=== PATIENT | male | born 1950 | race Caucasian/White ===

== ENCOUNTER 2020-06-17 15:49 | Emergency (ER) | payer OTHER ==
[~2020-06-17] VITALS: Ht 188 cm; Wt 121.8 kg
[2020-06-17 16:05] VITALS: TEMP 98.3
[2020-06-17] MEDS ORDERED: LANTUS100 U/ML SQ (16:35)
[2020-06-17] MEDS ORDERED: TRULICITY1.5 MG/0.5 SQ (16:36)
[2020-06-17] MEDS ORDERED: ACTOS 15MG TAB15 MG PO (16:41)
[2020-06-17] MEDS ORDERED: SINEMET 10/101 UDTAB PO (16:43)
[2020-06-17] MEDS ORDERED: ASPIRIN 81M81 MG/TA2 PO (16:44)
[2020-06-17] MEDS ORDERED: NEURONTIN400 MG/CAP PO (16:45)
[2020-06-17] MEDS ORDERED: ZOCOR5 MG PO (16:47)
[2020-06-17] MEDS ORDERED: CLARITIN 1010 MG/TAB PO (16:48)
[2020-06-17] MEDS ORDERED: EFFE25TA PO (16:49)
[2020-06-17] MEDS ORDERED: PRINIVIL10 MG PO (16:49)
[2020-06-17] MEDS ORDERED: GLUCOTROL 5M5 MG/TAB PO (16:51)
[2020-06-17 17:21] LABS: COLLECTION METHOD CLEAN CATCH
[2020-06-17 17:32] LABS: BASO % 0.3 % (0.0-2.0); EOS # 0.2 (0.0-0.7); EOS % 2.6 % (0-4.0); GRAN # 4.2 (1.4-6.5); GRAN % 67.7 % (42.2-75.2); HEMATOCRIT 42.4 % (42.0-52.0); HEMOGLOBIN 14.4 g/dl (13.5-18.0); LYMPH # 1.5 (1.2-3.4); LYMPH % 23.9 % (20.0-51.0); MEAN CELL VOLUME 88 fl (80.0-100.0); MEAN CORPUSCULAR HEMOGLOBIN 30 pg (27.0-31.0); MEAN CORPUSCULAR HGB CONC 34 g/dl (33.0-37.0); MEAN PLATELET VOLUME 10.6 fl (7.4-10.4); MONO # 0.3 (0.1-0.6); MONO % 5.3 % (1.7-9.3); PLATELET COUNT 104 K/mm3 (130-400); RED BLOOD COUNT 4.81 M/mm3 (4.20-5.60); REDCELL DISTRIBUTION WIDTH-CV 14.5 % (11.5-14.5)
[2020-06-17 17:35] LABS: ALANINE AMINOTRANSFERASE 7 U/L (4-49); ALBUMIN 4.3 gm/dL (3.5-5.0); ALKALINE PHOSPHATASE 93 U/L (50-136); ANION GAP 6 mmol/L (7-16); AST,SGOT 38 U/L (15-37); BILIRUBIN,TOTAL 0.9 mg/dL (0.0-1.0); BLOOD UREA NITROGEN 20 mg/dL (9-20); C-REACTIVE PROTEIN 0.6 mg/dL (0.0-0.9); CALCIUM 9.7 mg/dL (8.4-10.2); CARBON DIOXIDE 29 mmol/L (22-30); CHLORIDE 97 mmol/L (98-107); CREATININE, serum 0.67 (0.66-1.25); GLUCOSE 196 mg/dL (74-106); LIPASE 172 U/L (23-300); POTASSIUM 4.1 mmol/L (3.4-5.0); SODIUM 132 mmol/L (137-145); TOTAL PROTEIN 7.1 gm/dL (6.4-8.2)
[2020-06-17 17:38] LABS: ACETONE,SERUM NEGATIVE
[2020-06-17 17:40] LABS: URINE APPEARANCE Clear; URINE COLOR Yellow
[2020-06-17 17:41] LABS: PH 6 (5-8); SQUAMOUS EPITHELIAL 0-2 /hpf; URINE BACTERIA None Seen /hpf; URINE BILIRUBIN Negative (NEGATIVE); URINE BLOOD Negative (NEGATIVE); URINE GLUCOSE 3+ (NEGATIVE); URINE KETONE Trace (NEGATIVE); URINE LEUKOCYTE ESTERASE Negative (NEGATIVE); URINE NITRATE Negative (NEGATIVE); URINE PROTEIN(semi-quant) Negative (NEGATIVE); URINE RBC 0-2 /hpf; URINE UROBILINOGEN Negative (NEGATIVE)
[2020-06-17 17:59] LABS: ERYTHROCYTE SEDIMENTATION RATE 7 mm/hr (0-30)
[2020-06-17] MEDS ORDERED: FLOXIN 10 ML10 ML OT (19:06)
[2020-06-17] MEDS ORDERED: DOXYCYCLINE 10100 MG PO (19:06)
[2020-06-17 19:17] VITALS: BP 146/89; PULSE 70
== END 2020-06-17 19:25 | disposition home or self-care (01) ==
LOC: COL.ER 15:49
PROVIDERS: Physician Assistant
DX: K46.9 Unspecified abdominal hernia without obstruction or gangrene (principal); H72.91 Unspecified perforation of tympanic membrane, right ear; L08.9 Local infection of the skin and subcutaneous tissue, unspecified; E11.9 Type 2 diabetes mellitus without complications; I10 Essential (primary) hypertension; E78.5 Hyperlipidemia, unspecified; G20 Parkinson's disease; Z88.0 Allergy status to penicillin; Z79.4 Long term (current) use of insulin; Z79.82 Long term (current) use of aspirin; F17.210 Nicotine dependence, cigarettes, uncomplicated
CPT/HCPCS: Q9967

== ENCOUNTER 2020-08-07 10:06 | Emergency (ER) | payer OTHER ==
[~2020-08-07] VITALS: Ht 188 cm; Wt 125.0 kg
[~2020-08-07 10:06] MED LIST: ACTOS 15MG TAB15 MG PO; ASPIRIN 81M81 MG/TA2 PO; CLARITIN 1010 MG/TAB PO; DOXYCYCLINE 10100 MG PO; EFFE25TA PO; FLOXIN 10 ML10 ML OT; GLUCOTROL 5M5 MG/TAB PO; LANTUS100 U/ML SQ; NEURONTIN400 MG/CAP PO; PRINIVIL10 MG PO; SINEMET 10/101 UDTAB PO; TRULICITY1.5 MG/0.5 SQ; ZOCOR5 MG PO
[2020-08-07 11:04] LABS: BASO % 0.2 % (0.0-2.0); EOS # 0.1 (0.0-0.7); EOS % 1.6 % (0-4.0); GRAN # 3.6 (1.4-6.5); GRAN % 72.9 % (42.2-75.2); HEMATOCRIT 41.8 % (42.0-52.0); HEMOGLOBIN 13.8 g/dl (13.5-18.0); LYMPH # 0.8 (1.2-3.4); LYMPH % 15.9 % (20.0-51.0); MEAN CELL VOLUME 90 fl (80.0-100.0); MEAN CORPUSCULAR HEMOGLOBIN 30 pg (27.0-31.0); MEAN CORPUSCULAR HGB CONC 33 g/dl (33.0-37.0); MEAN PLATELET VOLUME 11.1 fl (7.4-10.4); MONO # 0.5 (0.1-0.6); MONO % 9.2 % (1.7-9.3); PLATELET COUNT 89 K/mm3 (130-400); RED BLOOD COUNT 4.66 M/mm3 (4.20-5.60); REDCELL DISTRIBUTION WIDTH-CV 14.3 % (11.5-14.5)
[2020-08-07 11:13] LABS: INR 1.2 (0.8-3.0); PROTHROMBIN TIME 13.2 SECONDS (9.7-12.8)
[2020-08-07 11:16] LABS: ALANINE AMINOTRANSFERASE 13 U/L (4-49); ALBUMIN 4.1 gm/dL (3.5-5.0); ALKALINE PHOSPHATASE 82 U/L (50-136); ANION GAP 7 mmol/L (7-16); AST,SGOT 42 U/L (15-37); BLOOD UREA NITROGEN 21 mg/dL (9-20); C-REACTIVE PROTEIN 0.6 mg/dL (0.0-0.9); CALCIUM 9.2 mg/dL (8.4-10.2); CARBON DIOXIDE 26 mmol/L (22-30); CHLORIDE 99 mmol/L (98-107); CREATININE, serum 0.68 (0.66-1.25); GLUCOSE 190 mg/dL (74-106); LIPASE 114 U/L (23-300); POTASSIUM 4.3 mmol/L (3.4-5.0); SODIUM 132 mmol/L (137-145); TOTAL PROTEIN 7.2 gm/dL (6.4-8.2)
[2020-08-07 11:27] LABS: TROPONIN-I < 0.012 ng/mL (0.000-0.035)
[2020-08-07 12:30] VITALS: BP 123/76; PULSE 56; TEMP 98
== END 2020-08-07 12:39 | disposition home or self-care (01) ==
LOC: COL.ER 10:06
PROVIDERS: Nurse Practitioner Primary Care
DX: J06.9 Acute upper respiratory infection, unspecified (principal); I10 Essential (primary) hypertension; E11.40 Type 2 diabetes mellitus with diabetic neuropathy, unspecified; F32.9 Major depressive disorder, single episode, unspecified; F43.10 Post-traumatic stress disorder, unspecified; F17.210 Nicotine dependence, cigarettes, uncomplicated; Z20.822 Contact with and (suspected) exposure to COVID-19; Z90.89 Acquired absence of other organs; Z88.0 Allergy status to penicillin; Z88.4 Allergy status to anesthetic agent; Z79.4 Long term (current) use of insulin; Z79.82 Long term (current) use of aspirin
CPT/HCPCS: J7030

== ENCOUNTER 2023-04-29 21:22 | Emergency (ER) | payer OTHER ==
[~2023-04-29] VITALS: Ht 188 cm; Wt 91.8 kg
[~2023-04-29 21:22] MED LIST changes: +COLACE 100100 MG/CAP PO; +DESENEX TP; +EFFEXOR XR37.5 MG/CA PO; +FLAGYL500 MG PO; +FLEET MINE1 BOT/133 RC; +FLOMAX 0.40.4 MG/CAP PO; +GLUCOTROL10 MG PO; +JARDIANCE25 PO; +LEADER CLE17 GM/Dose PO; +LEVAQUIN 750MG750 M1 PO; +LEVEMIR100 U/ML SQ; +LIPITOR 40MG TA40 MG PO; +MIRALAX119G PO; +NEURONTIN300 MG/CAP PO; +NEURONTIN600 MG/TAB PO; +NORCO 325 MG-51 TAB PO; +NOVOLOG 100U100 U/M1 SQ; +PRINIVIL5 MG PO; +PROSCAR 5MG5 MG PO; +SINEMET CR1 UDTAB.S1 PO; +TRULICITY4.5 MG/0.5 SQ; +TUCKS50% TP; +TYLENOL 325MG325 MG PO; +UROXATRAL10 M1 PO; +VIAGRA50 M1; +VITAMIN D31000 I1 PO; +ZOLOFT 100MG100 MG PO
[2023-04-29 21:23] VITALS: TEMP 97.8
[2023-04-30 01:03] VITALS: BP 112/70; PULSE 76
== END 2023-04-30 01:04 | disposition home or self-care (01) ==
LOC: COL.ER 21:22
DX: M25.561 Pain in right knee (principal); M25.551 Pain in right hip; Z87.891 Personal history of nicotine dependence; W18.30XA Fall on same level, unspecified, initial encounter

== ENCOUNTER 2023-04-30 14:55 | Inpatient (IN) | payer OTHER, MEDICARE ==
[~2023-04-30] VITALS: Ht 188 cm; Wt 94.8 kg
[2023-04-30] VITALS (209 sets, daily range): BP systolic 107; BP diastolic 58; PULSE 72; TEMP 98.1; O2SAT 90–100
[2023-04-30 16:29] LABS: BASO % 0.4 % (0.0-2.0); EOS % 0.4 % (0.0-4.0); GRAN % 60.8 % (42.2-75.2); HEMATOCRIT 40.7 % (42.0-52.0); HEMOGLOBIN 14.5 g/dl (13.5-18.0); LYMPH # 1.5 K/mm3 (1.2-3.4); LYMPH % 30.3 % (20.0-51.0); MEAN CELL VOLUME 78 fl (80.0-100.0); MEAN CORPUSCULAR HEMOGLOBIN 28 pg (27-31); MEAN CORPUSCULAR HGB CONC 36 g/dl (33.0-37.0); MEAN PLATELET VOLUME 9.6 fl (7.4-10.4); MONO # 0.4 K/mm3 (0.1-0.6); MONO % 7.9 % (1.7-9.3); PLATELET COUNT 122 K/mm3 (130-400); RED BLOOD COUNT 5.21 M/mm3 (4.20-5.60); REDCELL DISTRIBUTION WIDTH-CV 14.5 % (11.5-14.5)
[2023-04-30 16:50] LABS: ALBUMIN 3.4 gm/dL (3.4-4.8); BILIRUBIN,TOTAL 0.6 mg/dL (0.2-1.2); C-REACTIVE PROTEIN 0.59 mg/dL (0.00-0.50); CALCIUM 9.5 mg/dL (8.4-10.2); CREATININE, serum 1.26 mg/dL (0.72-1.25); POTASSIUM 4.9 mmol/L (3.5-4.5); TOTAL PROTEIN 6.5 gm/dL (6.2-8.1)
--- NOTE | 2023-04-30 19:56 | NUR ---
PATIENT ARRIVED TO ICU VIA BED ON ROOM AIR. INSULIN DRIP RUNNING AT TIME OF ARRIVAL. PATIIENT ARRIVED WITH A RED BAG FULL OF MISC ITEMS. PATIENT ARRIVED WITH MEDICATIONS, GLASSES, PHONE, CHARGING CORD, JACKET, AND SHIRT. PATIENT STATED THAT HE HAD PANTS, HAT, GLOVES, AND STATED WALLET WAS IN HIS PANTS. THESE ITEMS DID NOT ARRIVE TO THE ICU. I CONTACTED THE ER CHARGE NURSE, CARLA, WHO CHECKED FOR ITEMS BUT WAS UNABLE TO FIND ANY. ALIVIA, HOSPITALIST, NOTIFIED IN REGARDS TO PATIENT STATUS, LABS, AND MED REC.
[2023-05-01] VITALS (838 sets, daily range): BP systolic 99–123; BP diastolic 63–79; PULSE 62–73; TEMP 97.3–98.1; O2SAT 84–100
[2023-05-01] LABS: CALCIUM 9.2 mg/dL (8.4-10.2); CREATININE, serum 0.86 mg/dL (0.72-1.25); POTASSIUM 3.7 mmol/L (3.5-4.5)
[2023-05-01 01:47] LABS: CALCIUM 8.7 mg/dL (8.4-10.2); CREATININE, serum 0.84 mg/dL (0.72-1.25); POTASSIUM 3.7 mmol/L (3.5-4.5)
[2023-05-01 03:56] LABS: CALCIUM 8.9 mg/dL (8.4-10.2); CREATININE, serum 0.81 mg/dL (0.72-1.25); POTASSIUM 3.2 mmol/L (3.5-4.5)
[2023-05-01 05:47] LABS: BASO % 0.6 % (0.0-2.0); EOS # 0.1 K/mm3 (0.0-0.7); EOS % 1.1 % (0.0-4.0); GRAN % 55.4 % (42.2-75.2); HEMATOCRIT 40.8 % (42.0-52.0); HEMOGLOBIN 14.7 g/dl (13.5-18.0); LYMPH # 2.4 K/mm3 (1.2-3.4); LYMPH % 33.5 % (20.0-51.0); MEAN CELL VOLUME 78 fl (80.0-100.0); MEAN CORPUSCULAR HEMOGLOBIN 28 pg (27-31); MEAN CORPUSCULAR HGB CONC 36 g/dl (33.0-37.0); MEAN PLATELET VOLUME 9.3 fl (7.4-10.4); MONO # 0.7 K/mm3 (0.1-0.6); PLATELET COUNT 148 K/mm3 (130-400); RED BLOOD COUNT 5.26 M/mm3 (4.20-5.60); REDCELL DISTRIBUTION WIDTH-CV 14.7 % (11.5-14.5)
[2023-05-01 06:07] LABS: ALBUMIN 3.2 gm/dL (3.4-4.8); CALCIUM 9.3 mg/dL (8.4-10.2); CREATININE, serum 0.82 mg/dL (0.72-1.25); PHOSPHOROUS 1.8 mg/dL (2.3-4.7); POTASSIUM 3.6 mmol/L (3.5-4.5)
--- NOTE | 2023-05-01 07:00 | NUR ---
Report received from FLACO Nguyen. Reviewed overnight events, labs and gtts infusing. Pt off insulin gtt at this time and receiving sub q insulin. Pt resting in bed with eyes closed, call light within reach. Will continue with POC.
--- NOTE | 2023-05-01 17:40 | NUR ---
REPORT RECEIVED FROM FLACO RAE IN ICU
--- NOTE | 2023-05-01 17:44 | NUR ---
Report called to FLACO Davidson on the third floor. The room is not clean, will transport pt upstairs when room is clean.
--- NOTE | 2023-05-01 18:07 | NUR ---
Pt refused to be repsotioned during shift. Educated about importance of turning because coccyx is reddend. Pt continues to refuse.
--- NOTE | 2023-05-01 19:01 | NUR ---
REPORT GIVEN TO FLACO DEAN
--- NOTE | 2023-05-01 19:27 | NUR ---
Pt transferred up to room 314 via wheelchair at 1900.
--- NOTE | 2023-05-01 21:43 | NUR ---
Patient arrived to the floor at 1923, remains on room air, still with IV infusing well on right forearm, assessed at this time, see shift assessment, medrec done, denies further need, call light and personal items within reach, fall precautions in place, will continue to monitor.
[2023-05-01] MEDS ORDERED: UROXATRAL10 M1 PO ×2 (22:32→22:34)
[2023-05-01] MEDS ORDERED: JARDIANCE25 PO (22:38)
[2023-05-02] MEDS ORDERED: LANTUS100 U/ML SQ (03:05)
[2023-05-02] MEDS ORDERED: TYLENOL 500MG500 MG PO (03:11)
--- NOTE | 2023-05-02 03:28 | NUR ---
Spoken to [facility] the [facility] in [place] and asked him about the updated home medlist. Robin, the PA made aware of the changes for his meds, received an order to change gabapentin which he takes 800mg TID, effexor 112.5mg daily, DC the flomax and proscar and add alfuzosin 10mg daily.
[2023-05-02 03:35] VITALS: BP 117/65; PULSE 80; TEMP 98
--- NOTE | 2023-05-02 06:00 | NUR ---
Repositioned in bed to his right side, drained 1700ml from the external catheter attached to urine bag, denies further needs, will report off to dayshift nurse.
[2023-05-02 07:21] LABS: BASO % 0.2 % (0.0-2.0); EOS % 0.7 % (0.0-4.0); GRAN # 3.2 K/mm3 (1.4-6.5); GRAN % 78.7 % (42.2-75.2); HEMATOCRIT 40.2 % (42.0-52.0); HEMOGLOBIN 14.1 g/dl (13.5-18.0); LYMPH # 0.5 K/mm3 (1.2-3.4); LYMPH % 12.7 % (20.0-51.0); MEAN CELL VOLUME 79 fl (80.0-100.0); MEAN CORPUSCULAR HEMOGLOBIN 28 pg (27-31); MEAN CORPUSCULAR HGB CONC 35 g/dl (33.0-37.0); MEAN PLATELET VOLUME 9.9 fl (7.4-10.4); MONO # 0.3 K/mm3 (0.1-0.6); MONO % 7.5 % (1.7-9.3); PLATELET COUNT 124 K/mm3 (130-400); RED BLOOD COUNT 5.08 M/mm3 (4.20-5.60); REDCELL DISTRIBUTION WIDTH-CV 14.7 % (11.5-14.5)
[2023-05-02 07:43] LABS: ALBUMIN 2.9 gm/dL (3.4-4.8); CALCIUM 8.8 mg/dL (8.4-10.2); CREATININE, serum 0.85 mg/dL (0.72-1.25); MAGNESIUM 1.7 mg/dL (1.6-2.6); PHOSPHOROUS 2.5 mg/dL (2.3-4.7); POTASSIUM 3.8 mmol/L (3.5-4.5)
--- NOTE | 2023-05-02 08:01 | NUR ---
THIS NURSE NOTIFIED OF PTS BLOOD GLUCOSE OF 426 [address] DIVINE CAMP ASSISTANT. DR MADRIGAL CALLED AND NOTIFIED. PROVIDER OKAY WITH 14 UNITS OF NOVOLOG PER PROTOCOL ONLY. NO NEW ORDERS AT THIS TIME. PT IS ALERT AND ORIENTED UPON ENTERING. PT STATES "I GUESS I HAD TOO MUCH ICE CREAM LAST NIGHT". PT DENIES NEEDS AT THIS TIME
--- NOTE | 2023-05-02 08:10 | NUR ---
PT SITTING UP EATING IN BED UPON ENTERING. THIS NURSE REMINDED PT OF BLOOD GLUCOSE THIS MORNING AND STATED THAT PT SHOULD WAIT TO EAT BREAKFAST UNTIL AFTER INSULING IS GIVEN AND BLOOD GLUCOSE RECHECKED. PT STATES "ITS TOO LATE" AND CONTINUES TO EAT. ASSESSMENT DONE, MEDS GIVEN PER ORDER. PT DENIES PAIN OR SHORTNESS OF BREATH AT THIS TIME. PTS SACRUM IS RED AND PT COMPLAINING ABOUT PILLOW ON HIS LEFT SIDE. THIS NURSE EDUCATED PT ON FREQUENT REPOSITIONING TO RELIEVE PRESSURE ON SACRUM. PILLOW REMOVED AND PT SUPINE. IV TO RIGHT FOREARM FLUSHES WELL WITHOUT COMPLICATIONS. UPPER LOBES AND BASES BILATERALLY DIMINISHED. LIBERTY CATHETER SECURED TO RIGHT THIGH AND IS DRAINING DEPENDENTLY WITHOUT ISSUES. PT DENIES NEEDS AT THIS TIME. BED IN LOWEST POSITION, CALL LIGHT IN REACH, BED ALARM ON
[2023-05-02 08:29] VITALS: BP 107/67; PULSE 86; TEMP 97.8
--- NOTE | 2023-05-02 09:12 | NUR ---
Initial visit; Patient thanked Sewing Machine Operator Floorperson for coming by though declined Spiritual Care. Patient had a flat affect until Sewing Machine Operator Floorperson smiled and stated she was glad she got to meet him though sorry the meeting was at the hospital. Then he smiled and said "thank you."
[2023-05-02 11:24] VITALS: BP 111/71; PULSE 99; TEMP 97.4
--- NOTE | 2023-05-02 11:59 | NUR ---
INSULIN GIVEN PER PROTOCCOL AND POTASSIUM REPLACED X1, WILL RECHECK POTASSIUM IN AM. EXTRENAL CATHETER NO LONGER IN PLACE. PT USING URINAL. URINE CONE PLACED DUE TO PT CONSTANT DRIBBLING OF URINE.
--- NOTE | 2023-05-02 14:45 | NUR ---
PT GIVEN SCHEDULED 10 UNITS OF NOVOLOG AND EDUCATED ON THIS, PT VERBALIZED UNDERSTANDING. PT URINE IS YELLOW AND CLOUDY AT THIS TIME. PT STATES THAT HE FEELS TIRED AND THIRSTY. BLOOD GLUCOSE CHECKED AND IS 361. WILL RECHECK WITH ACHS ORDER. BED IN LOWEST POSITION, CALL LIGHT IN REACH, BED ALARM ON
--- NOTE | 2023-05-02 15:44 | NUR ---
PT GIVEN 800MG OF GABAPENTIN SCHEDULED. PT TELLS THIS NURSE "I USUALLY TAKE 3 PILLS". THIS NURSE NOTIFIED PT OF ORDERED DOSE AND PT STATES THAT HE TAKES 900MG THREE TIMES A DAY. PT STATES "IF I DONT GET 900 I CANT FEEL MY FEET". MED REC REFLECTS 900MG THREE TIMES A DAY. DR CESPEDES NOTIFIED AND TELLS THIS NURSE "THATS FINE JUST ORDER WHAT HE GETS AT HOME".
--- NOTE | 2023-05-02 15:59 | NUR ---
[facility] NURSE [facility]ED [facility] TO SPEAK ABOUT [facility]TS GABAPENTIN DOSE. PHARMACIST TOLD THIS NURSE THAT THE PTS MOST RECENT PRESCRIPTION FOR 800MG GABPENTIN THREE TIMES A DAY WAS ON 01/06/2023. THE NURSE VERBALIZED UNDERSTANDING AND WILL UPDATE PT. NO MEDS CHANGED AT THIS TIME
--- NOTE | 2023-05-02 16:27 | NUR ---
Social grace reviewed PT notes which stated to consider options for discharge, possible home health. JAIME met with patient to discuss discharge planning. Patient confirmed he lives in [place] by himself. [place] [facility] and [place]. Patient denied having a DPOA-HC. Patient reports he has a cane, walker and wheelchair. Patient reports he is independent with ADLS. Patient's neighbors transports him to and from appointments. SW asked for the best point of contact and he reported his sister, Zeynep but he could not remember the phone number. SW discussed discharge planning. Patient reported he did not want to go straight home from the hospital as he was worried about falling again. SW presented SNF options from Medicare.gov in the area along with home health options. Patient expressed he wanted to know if he could be considered for the IPR unit at the hospital. JAIME notified JAIME Oneill whom notified Zabrina with the IPR team to review patient's information. Discharge plan: TBD
[2023-05-02 16:44] VITALS: BP 102/65; PULSE 86; TEMP 97.5
--- NOTE | 2023-05-02 18:58 | NUR ---
REPOR GIVEN TO FLACO ORTIZ
[2023-05-02 19:46] VITALS: BP 108/64; PULSE 86; TEMP 98.1
--- NOTE | 2023-05-02 21:26 | NUR ---
Andressa miller around 1947. Alert and oriented, and able to make needs known. Denies having pain and discomfort. Peripheral INT to right forearm. Denies SOB and dyspnea. LS CTA. HRR. Telemetry in place. BSAx4. No edema. Encouraged to reposition in bed every two hours, but does refuse at times. In bed with call light within reach. High fall risk precautions in place. Bed alarm on.
[2023-05-03] VITALS (7 sets, daily range): BP systolic 85–135; BP diastolic 46–72; PULSE 64–90; TEMP 97–98.7
--- NOTE | 2023-05-03 06:01 | NUR ---
Recieved IV ABX per orders during the night. Reports that he self caths at home. Bladder scan performed with 160 mls of urine in bladder. Patient has been incontinent, and has also used urinal during the night. In bed with call light within reach. High fall risk precautions in place. Bed alarm on.
[2023-05-03 07:46] LABS: BASO % 0.3 % (0.0-2.0); EOS % 0.2 % (0.0-4.0); GRAN # 3.8 K/mm3 (1.4-6.5); HEMATOCRIT 40.2 % (42.0-52.0); HEMOGLOBIN 14.1 g/dl (13.5-18.0); LYMPH # 1.4 K/mm3 (1.2-3.4); LYMPH % 24.4 % (20.0-51.0); MEAN CELL VOLUME 79 fl (80.0-100.0); MEAN CORPUSCULAR HEMOGLOBIN 28 pg (27-31); MEAN CORPUSCULAR HGB CONC 35 g/dl (33.0-37.0); MEAN PLATELET VOLUME 10.1 fl (7.4-10.4); MONO # 0.5 K/mm3 (0.1-0.6); MONO % 8.8 % (1.7-9.3); PLATELET COUNT 121 K/mm3 (130-400); RED BLOOD COUNT 5.06 M/mm3 (4.20-5.60)
[2023-05-03 08:05] LABS: ALBUMIN 2.6 gm/dL (3.4-4.8); CALCIUM 8.9 mg/dL (8.4-10.2); CREATININE, serum 0.82 mg/dL (0.72-1.25); MAGNESIUM 1.7 mg/dL (1.6-2.6); PHOSPHOROUS 3.1 mg/dL (2.3-4.7)
[2023-05-03] MEDS ORDERED: UROXATRAL10 M1 PO (13:39)
[2023-05-03] MEDS ORDERED: NEURONTIN800 MG/TAB PO (13:44)
[2023-05-03] MEDS ORDERED: VIAGRA50 M1 PO (14:01)
[2023-05-03] MEDS ORDERED: MELATONIN5 M1 PO (14:06)
[2023-05-03] MEDS ORDERED: PROAIR HFA0.09 MG/AC IH (14:07)
--- NOTE | 2023-05-03 15:05 | NUR ---
SW was informed by IPR Director she spoke with pt and they will be submitting for auth through the [facility]. Discharge Plan: IPR, pending auth
--- NOTE | 2023-05-03 23:27 | NUR ---
Patient assessed around 2049. Alert and oriented, and able to make needs known. Denies having pain and discomfort. Peripheral INT to right forearm. Denies SOB and dyspnea. LS CTA in upper lobes, diminished in lower. HRR. Telemetry in place. BSAx4. External catheter in place, yellow cloudy urine. Voices no questions, needs, or concerns at this time. In bed with call light within reach. High fall risk precautions in place. Bed alarm on.
[2023-05-04] VITALS (11 sets, daily range): BP systolic 106–135; BP diastolic 57–84; PULSE 70–82; TEMP 97.5–98.1
--- NOTE | 2023-05-04 05:54 | NUR ---
Patient complaining of level 9 pain to knees and legs. Given PRN Roxicodone as requested for pain. External catheter came off during the night. Redness to penis. Left off. Voices no further questions, needs, or concerns at this time. In bed with call light within reach. High fall risk precautions in place. Bed alarm on.
[2023-05-04 07:22] LABS: BASO % 0.2 % (0.0-2.0); EOS % 0.2 % (0.0-4.0); GRAN # 3.7 K/mm3 (1.4-6.5); GRAN % 80.6 % (42.2-75.2); HEMATOCRIT 41.7 % (42.0-52.0); HEMOGLOBIN 14.5 g/dl (13.5-18.0); LYMPH # 0.5 K/mm3 (1.2-3.4); LYMPH % 11.5 % (20.0-51.0); MEAN CELL VOLUME 81 fl (80.0-100.0); MEAN CORPUSCULAR HEMOGLOBIN 28 pg (27-31); MEAN CORPUSCULAR HGB CONC 35 g/dl (33.0-37.0); MEAN PLATELET VOLUME 9.3 fl (7.4-10.4); MONO # 0.3 K/mm3 (0.1-0.6); MONO % 6.8 % (1.7-9.3); PLATELET COUNT 125 K/mm3 (130-400); RED BLOOD COUNT 5.18 M/mm3 (4.20-5.60); REDCELL DISTRIBUTION WIDTH-CV 14.9 % (11.5-14.5)
[2023-05-04 07:33] LABS: ALBUMIN 2.8 gm/dL (3.4-4.8); CALCIUM 9.3 mg/dL (8.4-10.2); CREATININE, serum 0.84 mg/dL (0.72-1.25); MAGNESIUM 1.7 mg/dL (1.6-2.6); PHOSPHOROUS 3.2 mg/dL (2.3-4.7); POTASSIUM 4.5 mmol/L (3.5-4.5)
--- NOTE | 2023-05-04 10:37 | NUR ---
Patient sleeping upon entry to room, urinal in hand. Large incontinence episode noted. Patient states he felt drowsy from Roxicodone pill and must have fallen asleep. Redness noted to scrotum area, barrier cream applied after using bath wipe. Mepilex CDI on coccyx. Patient assisted to bathroom to clean up, refusing walker and gait belt. Gait is unsteady, patient noted to use furniture to hold on to. Linens changed. Patient denies pain at this time. Tolerating food and fluids well. Patient in bed with bed alarm on and call light within reach.
--- NOTE | 2023-05-04 14:57 | NUR ---
damper worker was informed by IPR Director Hermila that auth is pending still. Discharge Plan: IPR, pending auth
--- NOTE | 2023-05-04 17:30 | NUR ---
Patient remains stable at this time. Denies pain or discomfort. Blood sugars ranging from 280s-320s this shift. No excessive snacking noted, just meals and drinks on tray. Patient drinking Glucerna 100%. Resting in bed with call light in reach and fall precautions in place.
--- NOTE | 2023-05-04 18:20 | NUR ---
Increased redness noted to bottom, mepilex remains intact. Area blanching. Waffle cushion placed for patient to sit on. Patient had continent BM in toilet. All needs met at this time.
--- NOTE | 2023-05-04 19:30 | NUR ---
Assessment complete. A&Ox4. Denies nausea/shortness of breath/pain. VS stable. INT to right forearm flushes without difficulty. TELE reporting SR. Currently on RA. Mepilex to coccyx CDI. Noted to have small bruising to bilat lower ext. Plan of care discussed for this shift to include meds/pain control/calling for questions/concerns. Verbalizes understanding. Call light in reach. Will monitor.
--- NOTE | 2023-05-04 21:53 | NUR ---
Patient states he is suppose to take carbidopa three times a day. This nurse reviewed patients home medications list and this medication is not listed. Also reviewed claim history and carbidopa does not show up here either. Patient states [facility]. Will pass on to day shift to call VA to get a new med list sent.
[2023-05-04] MEDS ORDERED: DULCOLAX STOOL100 MG PO (22:10)
[2023-05-05] VITALS (14 sets, daily range): BP systolic 103–139; BP diastolic 62–82; PULSE 58–90; TEMP 97.8–98.8
--- NOTE | 2023-05-05 02:00 | NUR ---
Patient called with c/o pain to bilat lower ext. Rating pain 7/10 on pain scale described as intermittent burning. Spoke with ARIELLA South and tylenol ordered. Given at this time. Will monitor.
--- NOTE | 2023-05-05 05:41 | NUR ---
Patient had an uneventful night. Received tylenol x1 for bilat lower ext pain. INT to right forearm flushes well. VS remained stable. Mepilex to coccyx CDI. Tele reported SR. Currently on RA. Denies current needs. Call light in reach. Will monitor.
[2023-05-05 07:33] LABS: BASO % 0.2 % (0.0-2.0); EOS % 0.5 % (0.0-4.0); GRAN # 2.8 K/mm3 (1.4-6.5); GRAN % 68.6 % (42.2-75.2); HEMOGLOBIN 12.9 g/dl (13.5-18.0); LYMPH # 0.9 K/mm3 (1.2-3.4); LYMPH % 20.7 % (20.0-51.0); MEAN CELL VOLUME 79 fl (80.0-100.0); MEAN CORPUSCULAR HEMOGLOBIN 28 pg (27-31); MEAN CORPUSCULAR HGB CONC 35 g/dl (33.0-37.0); MONO # 0.4 K/mm3 (0.1-0.6); MONO % 9.5 % (1.7-9.3); PLATELET COUNT 103 K/mm3 (130-400); RED BLOOD COUNT 4.69 M/mm3 (4.20-5.60); REDCELL DISTRIBUTION WIDTH-CV 14.7 % (11.5-14.5)
[2023-05-05 07:52] LABS: ALBUMIN 2.4 gm/dL (3.4-4.8); CALCIUM 8.7 mg/dL (8.4-10.2); CREATININE, serum 0.74 mg/dL (0.72-1.25); MAGNESIUM 1.7 mg/dL (1.6-2.6); POTASSIUM 3.9 mmol/L (3.5-4.5)
[2023-05-05] MEDS ORDERED: SINEMET 25/101 UDTAB PO (09:18)
--- NOTE | 2023-05-05 11:08 | NUR ---
Patient alert and oriented x4. Shift assessment completed this morning. Patient states he is tired from little sleep last night due to urinary frequency. Orders provided for condom catheter for night time use. Patient ambulating self to bathroom with x1 assistance, still noted to hold on to furniture for stability and refuse walker. PT worked with patient, but patient required increased encouragement to comply. Mepilex in place to coccyx, waffle cushion underneath bottom. Patient requesting sugary snacks, education provided on blood sugar management. All needs met at this time.
--- NOTE | 2023-05-05 14:19 | NUR ---
Patient expressed some concerns he had with his needs not being met today. States he called for assistance with urinal and no one came. Listened to patient's frustrations. Patient wants to wear a brief in bed and take waffle cushion out. Education provided on pressure reducing and skin breakdown. Patient encouraged to call to get up and ambulate to bathroom often, states he will. Wants to get in recliner and play guitar. Fall precautions in place, all needs met at this time.
--- NOTE | 2023-05-05 15:35 | NUR ---
lease out worker was informed VA auth is still pending, but patient might not even be signed up for VA benefits. IPR Director is still working to get this figured out and will update the team tomorrow. DR. Kenan Singh notified. Discharge Plan: IPR tenative, tbd
--- NOTE | 2023-05-05 20:00 | NUR ---
Assessment complete. A&Ox4. Denies nausea/shortness of breath. Rating pain 7/10 to bilat lower [id number]-pdemjef-ysggrpe given per dr order. INT to right forearm flushes without difficulty. Mepilex to coccyx CDI. Currently on RA. TELE reporting SR. On RA. Patient requesting condom cath be placed at HS. Will apply closer to sleep time. Plan of care discussed for this shift to include meds/pain control/calling for questions/concerns. Verbalizes understanding. Call light in reach. Will monitor.
[2023-05-06] VITALS (9 sets, daily range): BP systolic 91–126; BP diastolic 59–71; PULSE 67–76; TEMP 97.7–98.9
--- NOTE | 2023-05-06 06:07 | NUR ---
Patient had an uneventful night. VS remained stable. Condom cath for sleep. INT to right forearm flushes well-no s/s of infiltration noted. On contact precautions for ESBL in urine. Denies current needs. Call light in reach. Will monitor.
--- NOTE | 2023-05-06 08:00 | NUR ---
DR COX NOTIFIED OF PTS BP 91/59. HOSPITALIST TOLD THIS NURSE TO RECHECK IN AN HOUR.
--- NOTE | 2023-05-06 08:20 | NUR ---
PT LAYING IN BED UPON ENTERING. ASSESSMENT DONE, MEDS GIVEN PER ORDER. INT TO RIGHT FOREARM FLUSHES WELL WITHOUT COMPLICATIONS. EXPIRATORY WHEEZES HEARD IN ALL LUNG WHEELER. PT DENIES PAIN OR SHORTNESS OF BREATH AT THIS TIME. PT HAS ABRASION TO LEFT GONZALEZ COVERED WITH AQUACELL. PT DENIES NEEDS AT THIS TIME. BED IN LOWEST POSITION, CALL LIGHT IN REACH, BED ALARM ON.
[2023-05-06 08:25] LABS: BASO % 0.2 % (0.0-2.0); EOS % 0.7 % (0.0-4.0); GRAN # 2.6 K/mm3 (1.4-6.5); HEMATOCRIT 41.3 % (42.0-52.0); HEMOGLOBIN 14.2 g/dl (13.5-18.0); LYMPH # 1.1 K/mm3 (1.2-3.4); LYMPH % 25.1 % (20.0-51.0); MEAN CELL VOLUME 81 fl (80.0-100.0); MEAN CORPUSCULAR HEMOGLOBIN 28 pg (27-31); MEAN CORPUSCULAR HGB CONC 34 g/dl (33.0-37.0); MEAN PLATELET VOLUME 9.8 fl (7.4-10.4); MONO # 0.5 K/mm3 (0.1-0.6); MONO % 12.1 % (1.7-9.3); PLATELET COUNT 109 K/mm3 (130-400); RED BLOOD COUNT 5.11 M/mm3 (4.20-5.60); REDCELL DISTRIBUTION WIDTH-CV 14.9 % (11.5-14.5)
[2023-05-06 08:35] LABS: CALCIUM 9.3 mg/dL (8.4-10.2); CREATININE, serum 0.7 mg/dL (0.72-1.25); POTASSIUM 3.9 mmol/L (3.5-4.5)
--- NOTE | 2023-05-06 13:04 | NUR ---
caseworker intake was informed by Yasmany Zaragoza that pt is refusing services from the therapists. She states someone told him he was discharging home today and he did not agree with this. JAIME spoke with IPR Director Hermila who declines patient for IPR due to refusal of therapies in the recent past. JAIME spoke with Dr. Kenan Singh who informs SW pt is on an IV antibiotic and would benefit from a swing bed if he cannot get into IPR. JAIME and Student Heena met with pt to discuss the discharge plan. SW advised that swing bed had not accepted him due to a refusal of services. Pt verbalized that he only did that because "someone said I was going home and DC didn't cover it." SW stated that they were attempting to get VA approval and and unsure on if it was active. SW stated that pt does have Medicare AB. Pt was surprised by this and said "I do?" SW confirmed with him he does. SW went over the next reccomendation, which was Swing Bed to finish the last 6~ days of IV abox. Pt was informed on the longterm there and how they even provide rehab services in the hospital setting. Pt says, "So I can't stay here? If I can't stay here I am going home." SW continued to provide information on Swing Bed and its benefits to pt. He was informed on the need to continue his IV abox. Pt shook his head and stated multiple times he will just go home. SW asked what he would do about the need for medication and he shrugged his shoulders and said, "we'll see." JAIME exited the room and informed on patient's decision. JAIME spoke with Oncology Social Work Sammi who reports she cannot access the VA system to see if he has 's Choice. She confirmed that pt does have active Medicare. SW informed and IPR Hermila. Discharge Plan: Home
[2023-05-06] MEDS ORDERED: MONUROL 3 GM3 G/PKT PO (14:31)
--- NOTE | 2023-05-06 14:55 | NUR ---
dairy feed worker was notified by Dr. Kenan Singh that she spoke with pt about discharge and he reported not having a car, transportation, or his house keys. SW spoke with patient and he said his neighbor, Ximena [phone] is coming back in 2.5 hours to pick him up. SW informed him to keep the nurse/aide updated on the status so they can assist in getting him ready. SW completed IM from Medicare by verbal order. Pt provided verbal consent. SW provided patient with copy and original in chart. Pt reports he [facility] home care [facility] the [facility] and all his appointments are scheduled in advance. Discharge Plan: Home
--- NOTE | 2023-05-06 15:35 | NUR ---
IV AND TELE REMOVED. PT GIVEN DISCHARGE INSTRUCTIONS AND VERBALIZED UNDERSTANDING. PT GIVEN ONE TIME FOSFOMYCIN. PT DENIES NEEDS AT THIS TIME AND THIS NURSE GAVE PT CLOTHES TO CHANGE INTO, PT DENIES NEEDING HELP FROM STAFF TO CHANGE. PT REPORTS THAT HIS RIDE WILL BE HERE FROM [phone]. PT HAS NO OTHER NEEDS AT THIS TIME
--- NOTE | 2023-05-06 17:20 | NUR ---
PT IS DRESSED IN PERSONAL CLOTHES AND FAMILY AT BEDSIDE. BELONGINGS TAKEN BY SON AND PT ESCORTED TO PERSONAL VEHICLE VIA WHEELCHAIR BY COREY CLAYTON
[2023-05-09] MEDS ORDERED: MONUROL 3 GM3 G/PKT PO (10:20)
== END 2023-05-06 17:21 | disposition home or self-care (01) | DRG 638 ==
LOC: COL.ER 14:55 → ICU 17:14 → MEDICAL 17:14
PROVIDERS: Family Medicine; Physician Assistant; ADMIT Internal Medicine
DX: E11.10 Type 2 diabetes mellitus with ketoacidosis without coma (principal); E87.1 Hypo-osmolality and hyponatremia; N39.0 Urinary tract infection, site not specified; Z16.12 Extended spectrum beta lactamase (ESBL) resistance; I49.3 Ventricular premature depolarization; K59.00 Constipation, unspecified; E11.40 Type 2 diabetes mellitus with diabetic neuropathy, unspecified; R33.9 Retention of urine, unspecified; G20.A1 Parkinson's disease without dyskinesia, without mention of fluctuations; F17.210 Nicotine dependence, cigarettes, uncomplicated; I10 Essential (primary) hypertension; F43.10 Post-traumatic stress disorder, unspecified; H26.9 Unspecified cataract; I49.1 Atrial premature depolarization; I48.91 Unspecified atrial fibrillation; R29.6 Repeated falls; B96.20 Unspecified Escherichia coli [E. coli] as the cause of diseases classified elsewhere; I34.0 Nonrheumatic mitral (valve) insufficiency; Z88.0 Allergy status to penicillin; Z88.7 Allergy status to serum and vaccine; Z91.041 Radiographic dye allergy status; Z90.49 Acquired absence of other specified parts of digestive tract; Z79.82 Long term (current) use of aspirin; Z79.899 Other long term (current) drug therapy; Z79.4 Long term (current) use of insulin; Z88.4 Allergy status to anesthetic agent
CPT/HCPCS: J1650; J1815; J2185; J7030; J7042

== ENCOUNTER 2023-12-01 12:01 | Emergency (ER) | payer OTHER ==
[~2023-12-01] VITALS: Ht 188 cm; Wt 93.2 kg
[~2023-12-01 12:01] MED LIST changes: +BASAGLAR K100 UNIT/1 SQ; +CLEOCIN HC150 MG/CAP PO; +CVS GLUCOSE BIT1 CTB PO; +DULCOLAX STOOL100 MG PO; +INSULIN AS100 UNIT/2 SQ; +INSULIN HUMA100 U/ML SQ; +MELATONIN5 M1 PO; +MONUROL 3 GM3 G/PKT PO; +NEURONTIN800 MG/TAB PO; +PROAIR HFA0.09 MG/AC IH; +REFRESH TEARS 330 ML OP; +SINEMET 25/101 UDTAB PO; +TYLENOL 500MG500 MG PO; +VIAGRA50 M1 PO; -VITAMIN D31000 I1 PO; +VITAMIN D31000 IU PO
[2023-12-01 12:09] VITALS: TEMP 98.9
[2023-12-01] MEDS ORDERED: Acetaminophen 325 MG TAB PO ONE (12:45)
[2023-12-01 16:30] VITALS: BP 101/70; PULSE 96
[2023-12-03] MEDS ORDERED: INSULIN LI100 UNIT/2 (06:31)
[2023-12-03] MEDS ORDERED: INSULIN GL100 UNIT/2 SQ (06:31)
[2023-12-03] MEDS ORDERED: NEURONTIN300 MG/CAP PO (06:32)
[2023-12-03] MEDS ORDERED: GLUCOTROL 5M5 MG/TAB PO (06:32)
[2023-12-03] MEDS ORDERED: ZOCOR5 MG (06:35)
[2023-12-05] MEDS ORDERED: ZOSTRIX-HP0.075% TP (09:42)
[2023-12-05] MEDS ORDERED: GLUCOTROL10 MG PO (09:48)
[2023-12-05] MEDS ORDERED: INSULIN AS100 UNIT/3 SQ (09:51)
[2023-12-05] MEDS ORDERED: MELATONIN5 M1 SL (09:56)
[2023-12-05] MEDS ORDERED: VIAGRA50 M1 PO (09:58)
[2023-12-08] MEDS ORDERED: DIFLUCAN200 MG PO (09:30)
== END 2023-12-01 16:30 | disposition home or self-care (01) ==
LOC: COL.ER 12:01
DX: S09.90XA Unspecified injury of head, initial encounter (principal); S01.01XA Laceration without foreign body of scalp, initial encounter; W01.118A Fall on same level from slipping, tripping and stumbling with subsequent striking against other sharp object, initial encounter

== ENCOUNTER 2024-01-27 11:21 | Inpatient (IN) | payer OTHER ==
[~2024-01-27] VITALS: Ht 188 cm; Wt 91.3 kg
[~2024-01-27 11:21] MED LIST changes: +CIPRO 500MG TA500 MG PO; +CIPRODEX OT; +DIFLUCAN200 MG PO; +INSULIN AS100 UNIT/3 SQ; +INSULIN GL100 UNIT/2 SQ; +INSULIN LI100 UNIT/2; +LIPITOR20 MG PO; +MELATONIN5 M1 SL; +ZOCOR5 MG; +ZOSTRIX-HP0.075% TP
[2024-01-27] MEDS ORDERED: Ondansetron 4 MG/2 ML VIAL IV ONE (11:45)
[2024-01-27] MEDS ORDERED: NS 1,000 ML IV ONE (11:45)
[2024-01-27] MEDS ORDERED: Morphine 4 MG/ML VIAL IV ONE (11:45)
[2024-01-27 12:04] LABS: BASO % 0.2 % (0.0-2.0); EOS % 0.2 % (0.0-4.0); GRAN # 7.5 K/mm3 (1.4-6.5); GRAN % 80.7 % (42.2-75.2); HEMATOCRIT 40.5 % (42.0-52.0); HEMOGLOBIN 13.7 g/dl (13.5-18.0); LYMPH # 1.1 K/mm3 (1.2-3.4); LYMPH % 12.3 % (20.0-51.0); MEAN CELL VOLUME 81 fl (80.0-100.0); MEAN CORPUSCULAR HEMOGLOBIN 27 pg (27-31); MEAN CORPUSCULAR HGB CONC 34 g/dl (33.0-37.0); MEAN PLATELET VOLUME 10.8 fl (7.4-10.4); MONO # 0.6 K/mm3 (0.1-0.6); MONO % 6.5 % (1.7-9.3); PLATELET COUNT 112 K/mm3 (130-400); RED BLOOD COUNT 5.01 M/mm3 (4.20-5.60); REDCELL DISTRIBUTION WIDTH-CV 15.3 % (11.5-14.5)
[2024-01-27 12:22] LABS: ALBUMIN 3.1 g/dL (3.4-4.8); BILIRUBIN,TOTAL 0.7 mg/dL (0.2-1.2); C-REACTIVE PROTEIN 10.11 mg/dL (0.00-0.50); CALCIUM 9.2 mg/dL (8.4-10.2); CREATININE, serum 0.85 mg/dL (0.72-1.25); POTASSIUM 3.7 mEq/L (3.5-4.5); TOTAL PROTEIN 6.6 g/dl (6.2-8.1)
[2024-01-27 12:24] LABS: COLLECTION METHOD CLEAN CATCH
[2024-01-27 12:30] LABS: PH 5.5 (5.0-8.5); URINE APPEARANCE CLOUDY (CLEAR/HAZY); URINE BLOOD 1+ (NEGATIVE); URINE COLOR YELLOW (YELLOW); URINE GLUCOSE 3+ (NEGATIVE); URINE KETONE NEGATIVE (NEGATIVE); URINE NITRATE NEGATIVE (NEGATIVE); URINE PROTEIN(semi-quant) TRACE (NEGATIVE); URINE UROBILINOGEN 0.2 E.U/dL (0.2-1.0)
[2024-01-27 12:43] LABS: BUDDING YEAST PRESENT (NOT PRESENT); URINE BACTERIA OCCASIONAL /hpf (NONE SEEN); URINE RBC 0-2 /hpf (0-2); URINE WBC >50 /hpf (0-2)
[2024-01-27] MEDS ORDERED: Iohexol 300 - 100 ML VIAL IV ONE (12:48)
[2024-01-27] MEDS ORDERED: NS 50 ML IV SCH (12:49)
[2024-01-27] MEDS ORDERED: cefTRIAXone 1 G in Water For Injection,Sterile 10 ML IV ONE (13:15)
--- NOTE | 2024-01-27 15:32 | NUR ---
Pt arrived to medical floor from ED. Vague report received from ED RN Aiyana. Admission assessment and intake completed. Pt reports to this nurse that he has brought personal home medications in and glasses. Pharmacy notified and home medications sent down to pharmacy. Unable to complete medication rec at this time as pt is unsure of what home medications are at this time. Wounds assessed in assessment and redressed with mepilex on all wounds. Pt denies pain rating 0/10. Pt ambulates independently with personal cane in room with no complications. INT to Rt wrist in place and flushes with no complications. Pt has no request at this time. Oriented pt to room, call light, and bathroom. Call light within reach.
[2024-01-27 15:38] VITALS: BP 109/65; PULSE 84; TEMP 98.2
[2024-01-27] MEDS ORDERED: Ondansetron 4 MG/2 ML VIAL IV PRN (15:45)
[2024-01-27] MEDS ORDERED: Acetaminophen 500 MG TAB PO PRN (15:45)
[2024-01-27] MEDS ORDERED: Meropenem 500 MG in Water For Injection,Sterile 10 ML IV SCH (16:00)
[2024-01-27 16:19] VITALS: BP_SYST 109
[2024-01-27] MEDS ORDERED: GLUCOTROL 5M5 MG/TAB PO (16:29)
[2024-01-27] MEDS ORDERED: Insulin Lispro (HumaLOG) SQ SCH ×2 (17:00)
[2024-01-27] MEDS ORDERED: Dextrose 50% Water 25 GM/50 ML SYRINGE IV PRN (17:00)
[2024-01-27] MEDS ORDERED: Dextrose (Glucose) 15 GM (4 x 3.75 GM) Chewable TABLET PACK PO PRN (17:00)
[2024-01-27] MEDS ORDERED: Glucagon 1 MG VIAL IM PRN (17:00)
--- NOTE | 2024-01-27 17:17 | NUR ---
CROEY Matthews reported blood sugar of 153 to this nurse. 4 units of humalog administered per sliding scale. Blood sugar in computer noted to be 149. Dr. Ramirez notified by phone of insulin administration and stated to this nurse that administration of 4 units of Humalog ok at this time.
[2024-01-27 17:19] VITALS: BP_SYST 109
[2024-01-27 20:21] VITALS: BP 148/82; PULSE 86; TEMP 97.9
[2024-01-27 20:55] VITALS: BP_SYST 148
[2024-01-27] MEDS ORDERED: Atorvastatin 20 MG TAB PO SCH (21:00)
[2024-01-27] MEDS ORDERED: Gabapentin 300 MG CAP PO SCH (21:00)
[2024-01-27 23:30] VITALS: BP 123/86; PULSE 78; TEMP 98.4
[2024-01-28] VITALS (12 sets, daily range): BP systolic 106–132; BP diastolic 65–79; PULSE 69–81; TEMP 97.5–98
[2024-01-28 06:34] LABS: BASO % 0.2 % (0.0-2.0); EOS # 0.1 K/mm3 (0.0-0.7); EOS % 0.9 % (0.0-4.0); GRAN # 3.9 K/mm3 (1.4-6.5); GRAN % 68.2 % (42.2-75.2); HEMATOCRIT 40.4 % (42.0-52.0); HEMOGLOBIN 13.7 g/dl (13.5-18.0); LYMPH # 1.2 K/mm3 (1.2-3.4); LYMPH % 20.6 % (20.0-51.0); MEAN CELL VOLUME 80 fl (80.0-100.0); MEAN CORPUSCULAR HEMOGLOBIN 27 pg (27-31); MEAN CORPUSCULAR HGB CONC 34 g/dl (33.0-37.0); MEAN PLATELET VOLUME 10.4 fl (7.4-10.4); MONO # 0.6 K/mm3 (0.1-0.6); MONO % 9.7 % (1.7-9.3); PLATELET COUNT 111 K/mm3 (130-400); RED BLOOD COUNT 5.06 M/mm3 (4.20-5.60); REDCELL DISTRIBUTION WIDTH-CV 15.1 % (11.5-14.5)
[2024-01-28 06:48] LABS: CALCIUM 9.2 mg/dL (8.4-10.2); CREATININE, serum 0.74 mg/dL (0.72-1.25); POTASSIUM 3.5 mEq/L (3.5-4.5)
--- NOTE | 2024-01-28 07:53 | NUR ---
Bedside report received from FLACO Chaves. Pt resting in bed awake with no complaints. Call light within reach.
[2024-01-28] MEDS ORDERED: Insulin Lispro (HumaLOG) SQ SCH (08:00)
[2024-01-28] MEDS ORDERED: Venlafaxine XR 37.5 MG CAP PO SCH (09:00)
[2024-01-28] MEDS ORDERED: Insulin Glargine-ygfn (Lantus) SQ SCH (09:00)
[2024-01-28] MEDS ORDERED: [UNRECOGNIZED DRUG - OTHER] PO SCH (09:00)
[2024-01-28] MEDS ORDERED: ALFUZOSIN 10 MG PO SCH (09:00)
[2024-01-28] MEDS ORDERED: Sertraline 100 MG TAB PO SCH (09:00)
--- NOTE | 2024-01-28 11:26 | NUR ---
Pt awake in bed eating breakfast. Shift assessment completed. VSS. Pt denies pain rating 0/10. RLE noted to have mild edema with no pitting. Redness to RLE noted. Wound to Rt foot covered with bandaid at this time. Pt requestign shower this afternoon and will redress wound following shower. Mepilex to Rt hand and Rt elbow in place covering open blisters. Pt ambulates independently in room with personal cane with no complications. INT to Rt wrist patent with no swelling, redness or drainage. Pt has no complaints at this time. Call light within reach.
[2024-01-28] MEDS ORDERED: cefTRIAXone 1 G in Water For Injection,Sterile 10 ML IV SCH (13:00)
--- NOTE | 2024-01-28 13:07 | NUR ---
Anvilsmith met with patient to discuss discharge planning. Patient lives in [place] with a roommate, Eyad. Patient goes to the [facility] for primary care and advised they are trying to change him to the home based primary care program. Patient belives he may have Home Health, but could not think of the agency. Patient was admitted to this hospital in November and was discharged to [facility] in [place]. Patient advised his medications are mailed to his home. Patient reported independence wt ADLS and that Eyad helps with shopping and transportation. Patient has a walker, cane, and shower chair available at home. Patient stated he plans to return home at time of discharge. SW collaborated with VIRIDIANA Turcios who advised patient did not want assistance with ambulation and requested PT sign off. Patient has DPOA-HC that designates his sister, Marlee and brother, Adriano. Discharge Plan; Home
--- NOTE | 2024-01-28 18:00 | NUR ---
Mepilex applied to pt Rt hand and Rt elbow open blisters. Pt reported to this nurse that there is a wound on buttock area. This nurse assessed pt skin and found small round open would between buttock and testicle region of body. Pt reported that outpatient wound care had been packing wound routinely for pt. This nurse applied Mepilex and notified Dr. Ramirez of wound. Dr. Ramirez stated Mepilex was fine at this time and no further action needed. This nurse then updated general house worker Annelise about pt wound and general house worker informed this nurse to document wound via photograph per protocol. Attempeted to measure wound and document photograph of wound into [place] but pt eating dinner at this time. This nurse informed pt that nursing staff would be in after dinner is complete to measure and document wound. Pt agreeable and has no complaints. Call light within reach.
[2024-01-29] VITALS (11 sets, daily range): BP systolic 112–151; BP diastolic 72–90; PULSE 64–77; TEMP 97.6–98.3
[2024-01-29 06:24] LABS: BASO % 0.2 % (0.0-2.0); EOS % 0.7 % (0.0-4.0); GRAN # 2.8 K/mm3 (1.4-6.5); GRAN % 65.1 % (42.2-75.2); HEMATOCRIT 37.6 % (42.0-52.0); HEMOGLOBIN 12.6 g/dl (13.5-18.0); LYMPH # 0.9 K/mm3 (1.2-3.4); LYMPH % 19.8 % (20.0-51.0); MEAN CELL VOLUME 80 fl (80.0-100.0); MEAN CORPUSCULAR HEMOGLOBIN 27 pg (27-31); MEAN CORPUSCULAR HGB CONC 34 g/dl (33.0-37.0); MONO # 0.6 K/mm3 (0.1-0.6); MONO % 13.7 % (1.7-9.3); PLATELET COUNT 102 K/mm3 (130-400); REDCELL DISTRIBUTION WIDTH-CV 14.9 % (11.5-14.5)
[2024-01-29 06:37] LABS: CALCIUM 8.9 mg/dL (8.4-10.2); CREATININE, serum 0.74 mg/dL (0.72-1.25); POTASSIUM 4.2 mEq/L (3.5-4.5)
--- NOTE | 2024-01-29 09:30 | NUR ---
PATIENT RESTING IN BED UPON ENTERING ROOM. MORNING MEDICATIONS ADMINISTERED PER eMAR. PATIENT DENIES ANY PAIN AT THIS TIME. DRESSINGS CHANGED. X2 ULCERS TO R FOOT, PLACED NON ADHERENT GAUZE PADS AND WRAPPED WITH GAUZE. R HAND HAS PURULENT DRAINAGE, THIS RN CLEANED THE SITE WITH STERILE GAUZE PADS AND STERILE WATER, AQUACELL PLACED TO SITE. R ELBOW ABRASION HAS A SCAB, AQUACELL PLACED TO AREA. TUNNELING WOUND TO LEFT GROIN/SCROTUM WAS PACKED AND COVERED WITH A GAUZE PAD AND TEGADERM. PATIENT UPDATED ON PLAN OF CARE. DENIES ANY NEEDS AT THIS TIME. WILL CONTINUE TO MONITOR.
[2024-01-29] MEDS ORDERED: Polyethylene Glycol 3350 17 GM PDS PO SCH (09:43)
[2024-01-29] MEDS ORDERED: cefTRIAXone 1 G in Water For Injection,Sterile 10 ML IV SCH (09:45)
[2024-01-29] MEDS ORDERED: Vancomycin 1.5 GM,Special Dose/Pharmacy Prepared 1.5 GM in NS 250 ML IV SCH (10:00)
[2024-01-29] MEDS ORDERED: Vancomycin 1.25 GM,Special Dose/Pharmacy Prepared 1.25 GM in NS 250 ML IV SCH (21:00)
[2024-01-30] VITALS (13 sets, daily range): BP systolic 120–137; BP diastolic 70–80; PULSE 65–81; TEMP 97.6–98.2
[2024-01-30 06:59] LABS: BASO % 0.5 % (0.0-2.0); EOS % 0.7 % (0.0-4.0); GRAN # 2.3 K/mm3 (1.4-6.5); GRAN % 55.7 % (42.2-75.2); HEMOGLOBIN 12.5 g/dl (13.5-18.0); LYMPH # 1.4 K/mm3 (1.2-3.4); LYMPH % 33.4 % (20.0-51.0); MEAN CELL VOLUME 79 fl (80.0-100.0); MEAN CORPUSCULAR HEMOGLOBIN 27 pg (27-31); MEAN CORPUSCULAR HGB CONC 34 g/dl (33.0-37.0); MEAN PLATELET VOLUME 9.5 fl (7.4-10.4); MONO # 0.4 K/mm3 (0.1-0.6); MONO % 9.2 % (1.7-9.3); PLATELET COUNT 107 K/mm3 (130-400); RED BLOOD COUNT 4.62 M/mm3 (4.20-5.60); REDCELL DISTRIBUTION WIDTH-CV 14.9 % (11.5-14.5)
[2024-01-30 07:12] LABS: HEMATOCRIT 36.5 % (42.0-52.0)
[2024-01-30 07:20] LABS: CALCIUM 8.8 mg/dL (8.4-10.2); CREATININE, serum 0.71 mg/dL (0.72-1.25)
--- NOTE | 2024-01-30 09:30 | NUR ---
PATIENT RESTING IN BED UPON ENTERING ROOM. MORNING MEDICATIONS ADMINISTERED PER eMAR. PATIENT UPDATED ON PLAN OF CARE. PATIENT DENIES ANY PAIN OR NEEDS AT THIS TIME. ALL WOUND DRESSINGS C/D/I FROM YESTERDAY. CALL LIGHT PLACED WITHIN REACH. WILL CONTINUE TO MONITOR.
--- NOTE | 2024-01-30 11:43 | NUR ---
PATIENT INFORMED THIS RN THAT HE WOULD NO LONGER LIKE RAJAT, INTERNET DATABASE SPECIALIST, ON HIS CASE. RAJAT CALLED AND INFORMED.
--- NOTE | 2024-01-30 13:48 | NUR ---
Pillowcase Maker was notified by Hospitalist that patient will need about a week of IV antibiotics and that they would recommend a swing bed stay. SW has worked with patient during previous hospitalizations and patient does not have reliable in home support, so this SW does not feel he is a good candidate for home IV antibiotics. Patient also does not have reliable transportation, so outpatient daily IV antibiotics may not be achievable for him. SW met with patient to discuss swing bed and patient stated he would just prefer to stay here for the antibiotics. SW explained this was not a option for him as he was medically cleared for discharge. SW discussed a swing bed stay and that it would require auth from [facility]. Patient immediately frustrated by this and stated he no longer has [employer] and will only go somewhere if the [facility] pays. Patient stated he received a $1000 bill because [employer] did not cover his last SNF stay. SW advised she would follow up on [employer] coverage. JAIME gave referrals to both [facility] and [facility]. JAIME also contacted the Admissions team to verify insurance. JAIME was notified by RN that patient has "fired" this SW and that he no longer wants to work with her. JAIME notified Director.
[2024-01-30] MEDS ORDERED: CUBICIN 500MG500 MG IV (15:45)
[2024-01-30] MEDS ORDERED: DAPTOmycin 500 MG in NS 10 ML IV SCH (16:00)
--- NOTE | 2024-01-30 16:13 | NUR ---
Top Frame Fitter uploaded prescription for IV antibiotics to the [employer] portal for review.
--- NOTE | 2024-01-30 20:30 | NUR ---
UPON SHIFT ASSESSMENT, PATIENT WAS AWAKE IN BED ON PHONE. HE IS A&O X . VS ARE WNL. BLLE DRESSINGS ARE CDI, PERIANAL-CDI AND ABRASION TO RT HAND CDI. PATIENT DENIES PAIN AT THIS TIME. BG 162 4 UNITS INSULIN PROVIDED. CALL LIGHT WITHIN REACH.
--- NOTE | 2024-01-30 22:30 | NUR ---
PATIENT REQUESTING STRAWBERRY ICE CREAM. DIET ORDERS ARE GENERAL, UPON PATIENT INSISTANCE, HOWEVER, PATIENT NON COMPLIANT DIABETIC. PATIENT EDUCATION PROVIDED.
--- NOTE | 2024-01-30 22:30 | NUR ---
PATIENT EXHIBITING ANXIOUS BEHAVIOR, STATES, "I'M AFRAID THE OPERATION IS GOING TO GO BAD. I'VE BEEN 57 YEARS AND I AM NOT READY TO LEAVE MY ." PATIENT EDUCATION PROVIDED ON UPCOMING EGD AND 30 MINUTES OF THERAPEUTIC COMMUNICATION WITH A WALK AROUND THE UNIT PROVIDED. PATIENT NOW PLEASANT AND STATED, "I FEEL SO MUCH BETTER. THANK YOU FOR LISTENING TO ME." CALL LIGHT WITHIN REACH. BED ALARM ON.
[2024-01-31] VITALS (7 sets, daily range): BP systolic 112–147; BP diastolic 72–80; PULSE 63–87; TEMP 97.5–97.7
--- NOTE | 2024-01-31 04:03 | NUR ---
PATIENT RESTING WITH TV ON. LAYING SUPINE WITH MOUTH AGAP, SNORING. NO SIGNS OF DISTRESS.
--- NOTE | 2024-01-31 10:35 | NUR ---
Assessment completed. Pt a/o x4. Tylenol administered for c/o BLE pain. Rates pain 12/26. Dressing to perianal area CDI. Dressing to right top/bottom of foot CDI. Dressings changed 01/29- order to change for QOD. 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
--- NOTE | 2024-01-31 14:09 | NUR ---
Patient reports pain to BLE has decreased to 3/10. Denies needs at this time.
[2024-01-31] MEDS ORDERED: ROCEPHIN VIA1 G/VIAL IJ (14:48)
--- NOTE | 2024-01-31 15:19 | NUR ---
[facility] sent confirmation that patient was approved to transfer to [facility] as previously discussed. Garima with [facility] states they can accept today and Dr Ji will be the accepting physician. parking worker met with patient and discussed that [facility] could accept patient today and patient was agreeable to transfer today. Worker arranged [facility] ambulance to transport at 3:15pm as patient does not have anyone that can drive him. Worker presented the IM and patient signed form. Worker put a copy of IM in the chart and gave patient a copy. Worker attended the multidisciplinary meeting and advised of [facility]'s acceptance. Worker met with patient's nurse, Nahed, and collaborated the above information. Discharge plan: [facility] today at 3:15pm.
--- NOTE | 2024-01-31 16:00 | NUR ---
Patient transferred to [facility] via EMS. Report called to Jacy at [facility]. Pt showered prior to transfer- dressing changed to right foot with telfa and gauze. Tranfer paperwork faxed to [phone].
[2024-02-01] MEDS ORDERED: Insulin Glargine-ygfn (Lantus) SQ SCH (09:00)
== END 2024-01-31 16:00 | disposition swing bed (61) | DRG 690 ==
LOC: COL.ER 11:21 → MEDICAL 14:09
PROVIDERS: Nurse Practitioner; ADMIT Internal Medicine
DX: N39.0 Urinary tract infection, site not specified (principal); L03.115 Cellulitis of right lower limb; I50.20 Unspecified systolic (congestive) heart failure; E87.1 Hypo-osmolality and hyponatremia; I50.30 Unspecified diastolic (congestive) heart failure; T14.8XXA Other injury of unspecified body region, initial encounter; E11.9 Type 2 diabetes mellitus without complications; I11.0 Hypertensive heart disease with heart failure; G20.A1 Parkinson's disease without dyskinesia, without mention of fluctuations; F17.210 Nicotine dependence, cigarettes, uncomplicated; E11.40 Type 2 diabetes mellitus with diabetic neuropathy, unspecified; F32.A Depression, unspecified; R53.81 Other malaise; F43.10 Post-traumatic stress disorder, unspecified; Z79.4 Long term (current) use of insulin; Z87.440 Personal history of urinary (tract) infections; Z79.899 Other long term (current) drug therapy; Z88.0 Allergy status to penicillin; Z88.9 Allergy status to unspecified drugs, medicaments and biological substances; Z88.4 Allergy status to anesthetic agent
CPT/HCPCS: J0696; J0878; J1650; J1815; J2185; J2270; J2405; J3370; J7030; J7050; Q9967

== ENCOUNTER 2024-02-15 19:23 | Emergency (ER) | payer OTHER ==
[~2024-02-15] VITALS: Ht 190.5 cm; Wt 93.2 kg
[~2024-02-15 19:23] MED LIST changes: +CUBICIN 500MG500 MG IV; +ROCEPHIN VIA1 G/VIAL IJ
[2024-02-15 19:27] VITALS: TEMP 97.1
[2024-02-15] MEDS ORDERED: Morphine 4 MG/ML VIAL IV ONE (19:45)
[2024-02-15 19:52] LABS: BASO % 0.3 % (0.0-2.0); EOS # 0.1 K/mm3 (0.0-0.7); EOS % 0.9 % (0.0-4.0); GRAN # 4.1 K/mm3 (1.4-6.5); GRAN % 64.7 % (42.2-75.2); HEMATOCRIT 40.4 % (42.0-52.0); HEMOGLOBIN 13.4 g/dl (13.5-18.0); LYMPH # 1.8 K/mm3 (1.2-3.4); LYMPH % 28.4 % (20.0-51.0); MEAN CELL VOLUME 82 fl (80.0-100.0); MEAN CORPUSCULAR HEMOGLOBIN 27 pg (27-31); MEAN CORPUSCULAR HGB CONC 33 g/dl (33.0-37.0); MONO # 0.4 K/mm3 (0.1-0.6); MONO % 5.5 % (1.7-9.3); PLATELET COUNT 136 K/mm3 (130-400); RED BLOOD COUNT 4.95 M/mm3 (4.20-5.60)
[2024-02-15] MEDS ORDERED: NS 100 ML IV ONE (19:59)
[2024-02-15] MEDS ORDERED: Iohexol 300 - 100 ML VIAL IV ONE (19:59)
[2024-02-15 20:18] LABS: ALBUMIN 3.6 g/dL (3.4-4.8); BILIRUBIN,TOTAL 0.4 mg/dL (0.2-1.2); CALCIUM 9.6 mg/dL (8.4-10.2); CREATININE, serum 0.99 mg/dL (0.72-1.25); POTASSIUM 4.4 mEq/L (3.5-4.5); TOTAL PROTEIN 7.3 g/dl (6.2-8.1)
[2024-02-15 20:25] LABS: TROPONIN-I 0.015 ng/mL (0.00-0.033)
[2024-02-15] MEDS ORDERED: Dicyclomine 10 MG/ML 2 ML VIAL IM ONE (22:00)
[2024-02-15 22:27] VITALS: BP 121/88; PULSE 72
--- NOTE | 2024-02-16 12:26 | NUR ---
dye worker confirmed that patient was set up with [facility] when he most recently discharged from the [facility]. Worker confirmed that Briana with [facility] will contact Natalia Thrall about this issue.
== END 2024-02-15 22:27 | disposition home or self-care (01) ==
LOC: COL.ER 19:23
PROVIDERS: Emergency Medicine
DX: R10.32 Left lower quadrant pain (principal); F17.200 Nicotine dependence, unspecified, uncomplicated
CPT/HCPCS: J0500; J2270; Q9967